=== PATIENT | female | born 1955 | race Caucasian/White ===

== ENCOUNTER 2017-03-07 19:25 | Emergency (ER) | payer OTHER ==
[2017-03-07 19:31] VITALS: TEMP 98; BMI 26.5
--- NOTE | 2017-03-07 20:09 | PDOC ---
History of Present Illness - General Chief Complaint: Chest Pain Stated Complaint: CHEST PAIN Time Seen by Provider: 03/07/17 19:27 - History of Present Illness Initial Comments: 03/07/17 20:11 "The patient is a 61 year old female with a significant past medical history of HLD, and GERD, who presents to the emergency department with chest pain for the past hour. She states that her chest pain is a pressure like sensation, ranging from mild to moderate,without radiation or modifying factors. It is not exertional or pleuritic. Pt denies SOB/palpitations/diaphoresis/nausea/vomiting/ abdominal pain. She notes that she was driving when the pain started and got better when she arrived at home. Pt now only has slight sensation of pressure in her chest. She has had similar episodes in the past that have all resolved spontaneously. She has not seen a doctor for it yet. She reports that her last stress test was 3 years ago, which was within normal limits as per patient. She reports that she is slated to have an echo performed on 03/13/17. Pt denies any leg swelling. Denies recent travel other than a flight from [place] last week. No h/o DVT/PE. Pt is not on estrogen. The patient denies fever, chills, nausea, vomit, diarrhea and constipation. Denies dysuria, frequency, urgency and hematuria. Family history: Mother; ME and CABG Allergies: None Past surgical history: None reported Social history: No alcohol, tobacco or drug use reported " Past History - Past Medical History Allergies/Adverse Reactions: Allergies Allergy/AdvReac Type Severity Reaction Status Date / Time Penicillins Allergy Verified 03/07/17 19:27 Home Medications: Ambulatory Orders NK [No Known Home Medication] 03/07/17 COPD: No Other medical history: HYPERLIPIDEMIA, GERD - Suicide/Smoking/Psychosocial Hx Smoking History: Unknown if ever smoked Have you smoked in the past 12 months: No Number of Cigarettes Smoked Daily: 0 Information on smoking cessation initiated: No Hx Alcohol Use: No Drug/Substance Use Hx: No Substance Use Type: None Review of Systems - Review of Systems Comments:: 03/07/17 20:14 "GENERAL/CONSTITUTIONAL: No fever or chills. No weakness. HEAD, EYES, EARS, NOSE AND THROAT: No change in vision. No ear pain or discharge. No sore throat. CARDIOVASCULAR: (+) Chest pain. No shortness of breath. RESPIRATORY: No cough, wheezing, or hemoptysis. GASTROINTESTINAL: No nausea, vomiting, diarrhea or constipation. GENITOURINARY: No dysuria, frequency, or change in urination. MUSCULOSKELETAL: No joint or muscle swelling or pain. No neck or back pain. SKIN: No rash NEUROLOGIC: No headache, vertigo, loss of consciousness, or change in strength/ sensation. ENDOCRINE: No increased thirst. No abnormal weight change. HEMATOLOGIC/LYMPHATIC: No anemia, easy bleeding, or history of blood clots. ALLERGIC/IMMUNOLOGIC: No hives or skin allergy. " *Physical Exam - Vital Signs Last Vital Signs Temp Pulse Resp BP Pulse Ox 98 F 92 H 14 141/93 99 03/07/17 19:28 03/07/17 19:28 03/07/17 19:28 03/07/17 19:28 03/07/17 19:28 - Physical Exam Comments: 03/07/17 20:14 "GENERAL: Awake, alert, and fully oriented, in no acute distress HEAD: No signs of trauma EYES: PERRLA, EOMI, sclera anicteric, conjunctiva clear ENT: Auricles normal inspection, hearing grossly normal, nares patent, oropharynx clear without exudates. Moist mucosa NECK: Nontender, no stepoffs, Normal ROM, supple, no lymphadenopathy, JVD, or masses LUNGS: Breath sounds equal, clear to auscultation bilaterally. No wheezes, and no crackles HEART: Regular rate and rhythm, normal S1 and S2, no murmurs, rubs or gallops ABDOMEN: Soft, nontender, normoactive bowel sounds. No guarding, no rebound. No masses EXTREMITIES: Normal range of motion, no edema. No clubbing or cyanosis. No cords, erythema, or tenderness NEUROLOGICAL: Cranial nerves II through XII intact. 5/5 strength and sensation in all extremities, Normal speech, normal gait SKIN: Warm, Dry, normal turgor, no rashes or lesions noted. " Heart Score/ECG Review - History History: Slightly suspicious - Electrocardiogram EKG: Normal - Age Age: 45-65 - Risk Factors Risk Factors Heart Score: Yes Hx Hypercholesterolemia Based on the list above the patient has:: 1-2 risk factors - Troponin Troponin: </= normal limit - Score Heart Score - Total: 2 - ECG Impressions Comment:: 03/07/17 20:15 NST, no PENNY/STDs, no TWIs, axis wnl, intervals wnl, rate 77 ED Treatment Course - LABORATORY CBC & Chemistry Diagram: 03/07/17 20:10 03/07/17 20:10 - ADDITIONAL ORDERS Additional order review: Laboratory Results 03/07/17 03/07/17 03/07/17 23:25 20:10 20:10 PT with INR 12.0 INR 1.07 PTT (Actin FS) 27.2 Sodium 136 Potassium 3.8 Chloride 106 Carbon Dioxide 25 Anion Gap 5 L BUN 20 H Creatinine 0.8 Creat Clearance w eGFR > 60 Random Glucose 101 Calcium 9.4 Total Bilirubin 0.9 AST 17 ALT 16 Alkaline Phosphatase 85 Creatine Kinase 110 98 Troponin I < 0.03 L < 0.03 L B-Natriuretic Peptide Total Protein 6.8 Albumin 3.8 Lipase 27 03/07/17 20:10 PT with INR INR PTT (Actin FS) Sodium Potassium Chloride Carbon Dioxide Anion Gap BUN Creatinine Creat Clearance w eGFR Random Glucose Calcium Total Bilirubin AST ALT Alkaline Phosphatase Creatine Kinase Troponin I B-Natriuretic Peptide 13.26 Total Protein Albumin Lipase 03/07/17 20:10 RBC 4.24 MCV 90.7 MCHC 33.7 RDW 13.1 MPV 8.3 Neutrophils % 62.1 Lymphocytes % 28.1 Monocytes % 8.1 Eosinophils % 1.3 Basophils % 0.4 - RADIOLOGY Radiology Studies Ordered: Category Date Time Status CHEST PA & LAT [RAD] Stat Radiology 03/07/17 19:58 Taken - Medications Given in the ED: ED Medications Discontinued Medications Generic Name Dose Route Start Last Admin Trade Name Freq PRN Reason Stop Dose Admin Pantoprazole Sodium 40 mg 03/07/17 21:57 03/07/17 22:13 Protonix - PO 03/07/17 21:58 40 mg ONCE ONE Administration Medical Decision Making - Medical Decision Making 03/07/17 20:15 61 F with atypical chest pain. EKG nonischemic. Pt with no PE risk factors, no vital sign abnormalities, no clinical signs of DVT. - Labs, serial trops - CXR 03/08/17 00:15 labs and trop x 2 wnl. Pt reassessed - continues to feel well without any chest pain. Vitals wnl. Exam normal. Pt well appearing. Clinically stable for DC. I discussed the physical exam findings, ancillary test results and final diagnoses with the patient. I answered all of the patient's questions. The patient was satisfied with the care received and felt comfortable with the discharge plan and treatment plan. The patient agrees to follow up with the primary care physician within 24-72 hours. *DC/Admit/Observation/Transfer Diagnosis at time of Disposition: Chest pain - Discharge Dispostion Disposition: HOME Condition at time of disposition: Good - Referrals - Patient Instructions Printed Discharge Instructions: DI for Atypical Chest Pain Additional Instructions: Follow up with your primary doctor within 1 week. You will likely need a repeat stress test for further evaluation of your chest pain. If you experience recurrent or worsening pain, shortness of breath, or any other concerning symptoms, return to the ER immediately. - Post Discharge Activity - Attestations Physician Attestion: 03/08/17 00:16 I, Dr. Jonathan Chi MD, attest that this document has been prepared under my direction and personally reviewed by me in its entirety. I further attest, that it accurately reflects all work, treatment, procedures and medical decision -making performed by me.
[2017-03-07 20:28] LABS: BASOPHIL 0.4 % (0-2.0); EOSINOPHIL 1.3 % (0-4.5); MCH 30.6 pg (25.7-33.7); MCHC 33.7 g/dl (32.0-36.0); MEAN CELL VOLUME 90.7 fl (80-96); MEAN PLT VOLUME 8.3 fl (7.5-11.1); NEUTROPHILS 62.1 % (42.8-82.8); PLATELET COUNT 365 K/MM3 (134-434); RDW 13.1 % (11.6-15.6); WHITE BLOOD COUNT 8.3 K/mm3 (4.0-10.8)
[2017-03-07 20:37] LABS: ALBUMIN 3.8 g/dl (3.5-5.0); ALK PHOS 85 U/L (32-92); ANION GAP 5 (8-16); BILIRUBIN,TOTAL 0.9 mg/dl (0.2-1.0); CALCIUM 9.4 mg/dl (8.4-10.2); CO2 25 mmol/L (22-28); CPK 98 IU/L (26-192); CREATININE 0.8 mg/dl (0.6-1.3); GLUCOSE,RANDOM 101 mg/dl (74-106); SGOT/AST 17 U/L (10-42); SGPT/ALT 16 U/L (10-40); TOT PROT 6.8 g/dl (6.4-8.3)
[2017-03-07 20:38] LABS: ACTIVATED PTT 27.2 SECONDS (24.0-38.9)
[2017-03-07 20:43] LABS: INR 1.07 (0.82-1.09)
[2017-03-07 20:52] LABS: TROPONIN I (DFP) < 0.03 ng/ml (0.03-0.50)
[2017-03-07] MEDS ORDERED: PANTOPRAZOLE 40 MG TABLET (FP) PO ONE (21:57)
[2017-03-07] MEDS ORDERED: PANTOPRAZOLE 40 MG TABLET (FP) ONE (22:55)
[2017-03-07 23:49] LABS: CPK 110 IU/L (26-192)
[2017-03-07 23:56] LABS: TROPONIN I (DFP) < 0.03 ng/ml (0.03-0.50)
[2017-03-08 00:20] VITALS: BP 137/95; PULSE 76
--- NOTE | 2017-03-08 22:23 | EKG ---
Test Reason : Blood Pressure : / mmHG Vent. Rate : 077 BPM Atrial Rate : 077 BPM P-R Int : 172 ms QRS Dur : 072 ms QT Int : 382 ms P-R-T Axes : 029 052 035 degrees QTc Int : 432 ms POOR DATA QUALITY, INTERPRETATION MAY BE ADVERSELY AFFECTED NORMAL SINUS RHYTHM NORMAL ECG NO PREVIOUS ECGS AVAILABLE Confirmed by GALINA DESIR MD ([id number]) on 03/08/2017 10:23:02 PM Referred By: Confirmed By:GALINA DESIR MD
== END 2017-03-08 00:20 | disposition home or self-care (01) ==
LOC: FER 19:25
DX: R07.89 Other chest pain (principal); E78.5 Hyperlipidemia, unspecified; K21.9 Gastro-esophageal reflux disease without esophagitis
CPT/HCPCS: 36415; 71020-TC; 80053; 82550; 83690; 83880; 84484; 85025; 85610; 85730; 93005; 99284-25

== ENCOUNTER 2017-12-09 05:56 | Emergency (ER) | payer OTHER ==
[2017-12-09 06:02] VITALS: BMI 25.1
--- NOTE | 2017-12-09 06:16 | PDOC ---
History of Present Illness - General Chief Complaint: Chest Pain Stated Complaint: BACK/CHEST PAIN Time Seen by Provider: 12/09/17 06:14 History Source: Patient Exam Limitations: No Limitations - History of Present Illness Initial Comments: 12/09/17 06:44 This is a 62-year-old female who comes in complaining of chest and epigastric pain radiating to her back. Patient said pain began approximately 8 hours prior to her arrival here. Patient said that it kept her up most of the night. Patient said this morning she took a probiotic and some Tums for the discomfort in her epigastric area without relief. Patient does not take a baby aspirin. Patient denies any associated shortness of breath, diaphoresis or similar pain in the past. Patient has a significant family history for her mother who had her first heart attack in her 60s and ended up having triple bypass and in her 80s of heart disease. Patient also has a history of high cholesterol. PAST MEDICAL HISTORY: no significant history PAST SURGICAL HISTORY: no significant history FAMILY HISTORY: no pertinant history SOCIAL HISTORY: Pt lives with family and is employed. MEDICATIONS: reviewed ALLERGIES: As per nursing notes Review of Systems General: No fevers or chills, no weakness, no weight loss HEENT: No change in vision. No sore throat,. No ear pain CardioVascular: No chest pain or shortness of breath Epigastric pain radiating to the back of her chest Respiratory:No cough, or wheezing. Gastrointestinal: no nausea, vomitting, diarrhea or constipation, No rectal bleeding Genitourinary: No dysuria, hematuria, or frequency Musculoskeletal: No joint or muscle pain or swelling Neurologic: No headache, vertigo, dizziness or loss of consciousness Psychiatric: nor depression Skin: No rashes or easy bruising Endocrine: no increased thirst or abnormal weight change Allergic: no skin or latex allergy All other systems reviewed and normal Exam: General: Well-nourished well-developed individual, no acute distress HEENT: Throat: Normal, tonsils normal, no erythema or exudate Neck: Supple, no meningeal signs, no lymphadenopathy Eyes::Pupils equal reactive and round, extraocular motion intact Chest: Nontender to palpation Cardiac: S1-S2 normal, regular rate and rhythm, no murmurs rubs or gallops Respiratory: Lungs clear to auscultation bilateral Abdomen: Soft, nondistended, normal bowel sounds, mild tenderness on palpation epigastric, no guarding or rebound Extremities: Warm, dry, no cyanosis, clubbing, or edema Skin: No rashes Neuro: Alert and oriented x3, CN II - XII intact, nonfocal exam with normal strength, normal sensation, normal reflexes, normal gait, Psych: Normal mood and affect EKG shows normal sinus rhythm at a rate of 71, no acute ST-T wave changes, normal intervals. Medical decision making: This is a 62-year-old female who comes in complaining of epigastric pain radiating to her back. Patient has a strong family history of coronary artery disease and a risk factor of high cholesterol. If patient's troponin is negative her heart score will be 3. Differential includes coronary artery disease, dissection, gastritis, pancreatitis, viral etiology, back pain. A workup is pending including CBC, comp, lipase, cardiac enzymes, chest x-ray, EKG. Patient was given a baby aspirin. Care of this patient was transferred to Dr. Napier at 7 AM Case discussed in detail with oncoming Emergency Physician including history, physical exam and ancillary studies. Oncoming Emergency Physician has assumed care for the patient and will complete the evaluation and treatment. Patient is aware of the plan. Pt is clinically unchanged and stable. 12/09/17 06:54 Past History - Past Medical History Allergies/Adverse Reactions: Allergies Allergy/AdvReac Type Severity Reaction Status Date / Time Penicillins Allergy Verified 03/07/17 19:27 Home Medications: Ambulatory Orders NK [No Known Home Medication] 03/07/17 COPD: No Hypercholesterolemia: Yes - Suicide/Smoking/Psychosocial Hx Smoking History: Never smoked Have you smoked in the past 12 months: No Number of Cigarettes Smoked Daily: 0 Hx Alcohol Use: No Drug/Substance Use Hx: No Substance Use Type: None *Physical Exam - Vital Signs Last Vital Signs Temp Pulse Resp BP Pulse Ox 97.8 F 77 16 144/95 100 12/09/17 05:57 12/09/17 05:57 12/09/17 05:57 12/09/17 05:57 12/09/17 05:57 Heart Score/ECG Review - History History: Moderately suspicious - Electrocardiogram EKG: Normal - Age Age: 45-65 - Risk Factors Risk Factors Heart Score: Yes Hx Hypercholesterolemia, Yes Positive family hx of cardiac disease Based on the list above the patient has:: 1-2 risk factors - Troponin Troponin: </= normal limit - Score Heart Score - Total: 3 ED Treatment Course - RADIOLOGY Radiology Studies Ordered: Category Date Time Status CHEST X-RAY PORTABLE* [RAD] Stat Radiology 12/09/17 06:16 Ordered - Medications Given in the ED: ED Medications Discontinued Medications Generic Name Dose Route Start Last Admin Trade Name Freq PRN Reason Stop Dose Admin Aspirin 162 mg 12/09/17 06:47 12/09/17 06:47 Asa - PO 12/09/17 06:48 162 mg ONCE ONE Administration *DC/Admit/Observation/Transfer - Discharge Dispostion Condition at time of disposition: Stable - Referrals Referrals: Tj Topete [Primary Care Provider] - - Patient Instructions - Post Discharge Activity
[2017-12-09] MEDS ORDERED: ASPIRIN 81 MG CHEWABLE TABLETS PO ONE (06:47)
[2017-12-09] MEDS ORDERED: ASPIRIN 81 MG CHEWABLE TABLETS ONE (06:48)
--- NOTE | 2017-12-09 07:09 | PDOC ---
*Physical Exam - Vital Signs Last Vital Signs Temp Pulse Resp BP Pulse Ox 97.8 F 77 16 144/95 100 12/09/17 05:57 12/09/17 05:57 12/09/17 05:57 12/09/17 05:57 12/09/17 05:57 - Physical Exam Comments: 12/09/17 07:34 Gen: aaox3, nad heent: eomi, mmm neck: supple heart: +s1s2 reg lungs: cta b/l abd: soft, mild epigastric ttp, no rebound or guarding back: no midline ttp, no cva ttp ext: no c/c/e ED Treatment Course - LABORATORY CBC & Chemistry Diagram: 12/09/17 06:20 12/09/17 06:20 - Medications Given in the ED: ED Medications Discontinued Medications Generic Name Dose Route Start Last Admin Trade Name Freq PRN Reason Stop Dose Admin Aspirin 162 mg 12/09/17 06:47 12/09/17 06:47 Asa - PO 12/09/17 06:48 162 mg ONCE ONE Administration Medical Decision Making - Medical Decision Making 12/09/17 07:35 a/p: 62yo female with hx of high cholesterol -pt signed out from the prior attending pending labs, cxr -ekg is nonacute, without st/t wave findings -trop, lipase pending -ddx: acs (heart score 3), pancreatitis, PUD, gastritis -given asa -will add gi cocktail -will monitor and reassess 12/09/17 07:36 cxr clear, no widened mediastinum, no ptx, no pna, no cardiomegaly 12/09/17 08:52 lipase negative pt resting comfortably trop negative will repeat trop at noon - if negative stable for d/c to home 12/09/17 10:10 re-eval: pt feeling better no chest pain, improvement in back pain, epigastric pain resolved. 12/09/17 13:11 repeat trop negative pt feeling better discussed all reasons to return to the ED and need for follow up answered all questions *DC/Admit/Observation/Transfer Diagnosis at time of Disposition: Chest pain, Epigastric pain - Discharge Dispostion Disposition: HOME Condition at time of disposition: Stable Decision to Admit order: No - Referrals Referrals: Tj Topete [Primary Care Provider] - Tobias Mckeon MD [Staff Physician] - Tyler Olivier DO [Staff Physician] - - Patient Instructions Printed Discharge Instructions: DI for Abdominal Pain-Adult, DI for Chest Pain Additional Instructions: Please make an appointment to see the staff psychiatrist and the patient registration manager this week. Please return to the ED immediately if the pain returns or continues. Please make an appointment to see you PMD in 2-3 days. - Post Discharge Activity - Attestations Physician Attestion: 12/09/17 12:47 I, Dr. Barbara Napier DO, attest that this document has been prepared under my direction and personally reviewed by me in its entirety. I further attest, that it accurately reflects all work, treatment, procedures and medical decision -making performed by me.
[2017-12-09] MEDS ORDERED: MAG HYDROX/AL HYDROX/SIMETH 30 ML UNIT-DOSE CUP PO ONE (07:33)
[2017-12-09] MEDS ORDERED: LIDOCAINE VISCOUS 2% ORAL/TOP 100 ML BOTTLE MM ONE (07:34)
[2017-12-09] MEDS ORDERED: MAG HYDROX/AL HYDROX/SIMETH 30 ML UNIT-DOSE CUP ONE (07:47)
[2017-12-09] MEDS ORDERED: LIDOCAINE VISCOUS 2% ORAL/TOP 20 ML UNIT-DOSE CUP ONE (07:47)
[2017-12-09 08:07] LABS: BASO % 0.6 % (0-2.0); EOS % 1.3 % (0-4.5); HEMATOCRIT 36.7 % (32.4-45.2); HEMOGLOBIN 12.4 GM/dL (10.7-15.3); LYMPH % 31.9 % (8-40); MCH 30.8 pg (25.7-33.7); MCHC 33.8 g/dl (32.0-36.0); MEAN CELL VOLUME 91.1 fl (80-96); MEAN PLT VOLUME 7.8 fl (7.5-11.1); MONO % 10.7 % (3.8-10.2); NEUT % 55.5 % (42.8-82.8); PLATELET COUNT 350 K/MM3 (134-434); RBC 4.03 M/mm3 (3.60-5.2); RDW 13.5 % (11.6-15.6); WHITE BLOOD COUNT 6.8 K/mm3 (4.0-10.0)
[2017-12-09 08:23] LABS: LIPASE 132 U/L (73-393)
[2017-12-09 08:29] LABS: ALBUMIN 3.7 g/dl (3.4-5.0); ALK PHOS 108 U/L (45-117); ANION GAP 6 MMOL/L (8-16); BILIRUBIN,TOTAL 0.5 mg/dL (0.2-1.0); BLOOD UREA NITROGEN 18 mg/dL (7-18); CALCIUM 8.7 mg/dL (8.5-10.1); CHLORIDE 108 mmol/L (98-107); CO2 26 mmol/L (21-32); CREATININE 0.7 mg/dL (0.55-1.02); GLUCOSE,RANDOM 98 mg/dL (74-106); SGOT/AST 18 U/L (15-37); SGPT/ALT 21 U/L (12-78); SODIUM 140 mmol/L (136-145); TOT PROT 7.1 g/dl (6.4-8.2)
[2017-12-09 08:51] LABS: PH,URINE 5.5 (4.5-8); URINE APPEARANCE Clear; URINE BILIRUBIN Negative (NEGATIVE); URINE COLOR Yellow; URINE GLUCOSE (UA) Negative (NEGATIVE); URINE KETONE Trace (NEGATIVE); URINE LEUK ESTERASE 1+ (NEGATIVE); URINE NITRITE Negative (NEGATIVE); URINE PROTEIN Negative (NEGATIVE); URINE UROBILINOGEN 0.2 (0.2-1.0)
[2017-12-09 09:15] LABS: AMORP URATES FEW /hpf (NONE SEEN); EPI CELLS FEW /HPF; URINE BACTERIA FEW /hpf (NEGATIVE); URINE RBC 0-2 /hpf (0-3)
[2017-12-09 10:44] VITALS: BP 123/78; PULSE 80; TEMP 98.4
--- NOTE | 2017-12-10 10:27 | EKG ---
Test Reason : Blood Pressure : / mmHG Vent. Rate : 071 BPM Atrial Rate : 071 BPM P-R Int : 184 ms QRS Dur : 078 ms QT Int : 382 ms P-R-T Axes : 036 052 025 degrees QTc Int : 415 ms NORMAL SINUS RHYTHM NORMAL ECG WHEN COMPARED WITH ECG OF 07-MAR-2017 19:37, NO SIGNIFICANT CHANGE WAS FOUND Confirmed by VICKI YODER MD ([id number]) on 12/10/2017 10:27:36 AM Referred By: MD MEDEL Confirmed By:VICKI YODER MD
== END 2017-12-09 13:38 | disposition home or self-care (01) ==
LOC: FER 05:56
DX: R07.9 Chest pain, unspecified (principal); R10.13 Epigastric pain
CPT/HCPCS: 36415; 71045-TC-FY; 80053; 81003; 81015; 82550; 83690; 84484; 85025; 93005; 99283-25